=== PATIENT | female | born 1990 | race Caucasian/White ===

== ENCOUNTER 2021-07-09 14:57 | Emergency (ER) | payer BC, MEDICAID ==
[2021-07-09] MEDS ORDERED: Ondansetron 4 MG/2 ML SDV IVPUSH ONE (15:07)
[2021-07-09] MEDS ORDERED: fentaNYL 100 MCG/2 ML SDV IVPUSH ONE (15:07)
[2021-07-09] MEDS ORDERED: Lactated Ringers 1,000 ML IV SCH (15:15)
== END 2021-07-09 19:36 | disposition home or self-care (01) ==
LOC: JD.ED 14:57
DX: N13.2 Hydronephrosis with renal and ureteral calculous obstruction (principal); Z88.0 Allergy status to penicillin; Z88.2 Allergy status to sulfonamides
CPT/HCPCS: 36415; 74176; 80053; 81001; 84703; 85025; 96374; 96375; 99284; J2405; J3010; J7120